=== PATIENT | female | born 1990 | race Caucasian/White ===

== ENCOUNTER 2018-11-16 08:48 | Emergency (ER) | payer BC ==
[~2018-11-16] VITALS: Ht 160 cm; Wt 56.2 kg
[2018-11-16] MEDS ORDERED: ONDANSETRON ODT4 MG SL (13:18)
[2018-11-16] MEDS ORDERED: METOCLOPRAMIDE10 MG PO (13:18)
[2018-11-16] MEDS ORDERED: PEPCID AC20 MG PO (13:18)
[2018-11-16] MEDS ORDERED: CONCEPT DHA CA1 EACH PO (13:18)
[2018-11-16] MEDS ORDERED: TRANSDERM-SCOP1 EACH TOP (13:28)
== END 2018-11-16 13:50 | disposition home or self-care (01) ==
LOC: ER 08:48
DX: O21.0 Mild hyperemesis gravidarum (principal); E86.0 Dehydration; R10.2 Pelvic and perineal pain; Z34.81 Encounter for supervision of other normal pregnancy, first trimester